=== PATIENT | female | born 1965 | race Caucasian/White ===

== ENCOUNTER 2016-07-01 17:32 | Emergency (ER) | payer MEDICAID ==
[~2016-07-01] VITALS: Wt 78.5 kg
[~2016-07-01 17:32] MED LIST: DICY20TA59 PO; ERYT1OIN6 RIGHT EYE; FURO20TA PO; RANI150T9 PO
[2016-07-01 19:41] LABS: URINE BLOOD (Dip) POC Negative (NEGATIVE)
[2016-07-01] MEDS ORDERED: ULT50 PO (20:06)
[2016-07-01] MEDS ORDERED: IBUP-1542 PO (20:06)
--- NOTE | 2016-07-01 20:11 | RADRPT ---
PROCEDURE: XR Lumbar Spine. CLINICAL INDICATION: Lumbar spine pain. TECHNIQUE: AP, lateral, and cone-down lateral view of the lumbar spine were obtained. COMPARISON: 09/13/2014 FINDINGS: The alignment of the lumbar spine is within normal limits. There are anterior osteophytes from L2-S 1 with mild narrowing of the intervertebral disc spaces at L2-3 and L5-S1. There are mild associate d discogenic endplate changes at L5-S1. The vertebral body heights and marrow density are normal in appearance. There is moderate facet spondylosis at L4-5 and L5-S1 with suggestion of neural foramin al narrowing at L5-S1. The remaining neural foramina appear patent. The paraspinal soft tissues un remarkable. There is no evidence of fracture. The bowel gas pattern is normal. IMPRESSION: 1. Mild to moderate degenerative disc disease at L2-3 and L5-S1. 2. Moderate facet spondylosis at L4-5 and L5-S1 with suggestion of neural foraminal narrowing at L5 -S1. RPTAT: HGAS .Ben Barragan MD, Date Time Electronically viewed and signed by .Ben Barragan MD, on 07/01/2016 20:10 .S/
--- NOTE | 2016-07-01 20:12 | ERD ---
ER Documentation Chief Complaint Date/Time DATE: 07/01/16 TIME: 20:08 Chief Complaint BACK PAIN X4 DAYS, NO INJURY HPI This 51-year-old female complains of left sided low back pain for last 4 days. She denies any history of trauma, dysuria, fevers, vomiting. ROS All systems reviewed and are negative except as per history of present illness. Medications Home Meds Active Scripts Tramadol HCl (Tramadol HCl) 50 Mg Tablet, 50 MG PO Q4 Y for PAIN, #20 TAB Prov:ELAINE MALIK MD 07/01/16 Ibuprofen* (Motrin*) 600 Mg Tab, 600 MG PO Q6, #20 TAB Prov:ELAINE MALIK MD 07/01/16 Furosemide* (Lasix*) 20 Mg Tablet, 20 MG PO DAILY, #5 TAB Prov:PRITI CRAFTSTOLOS A. DO 12/04/15 Dicyclomine Hcl* (Bentyl*) 20 Mg Tablet, 20 MG PO QID for abdominal pain, #20 TAB Prov:MJKKOSAPOSTOLOS AFranci DO 12/04/15 Ranitidine Hcl* (Zantac*) 150 Mg Tablet, 150 MG PO BID Y for EPIGASTRIC PAIN, # 30 TAB Prov:LEKKOSAPOSTOLOS A. DO 12/04/15 Erythromycin (Erythromycin Opth) 3.5 Gm Oint..gm., 1 APPLIC RIGHT EYE QID for 7 Days, EA Prov:OSITO CARPENTER PA-C 02/01/15 Allergies Allergies: Coded Allergies: No Known Allergies (Verified Allergy, Mild, 07/01/16) PMhx/Soc Medical and Surgical Hx: pt denies Surgical Hx History of Surgery: No Anesthesia Reaction: No Hx Neurological Disorder: Yes (Lumbar/Cervical Strain) Hx Respiratory Disorders: No Hx Cardiac Disorders: No Hx Psychiatric Problems: No Hx Miscellaneous Medical Probl: Yes (UTIs,Epitaxis,R Eye Injury,Sacral/ COccygeal Contusion) Hx Alcohol Use: No Hx Substance Use: No Hx Tobacco Use: No Smoking Status: Never smoker Physical Exam Vitals Vital Signs Date Time Temp Pulse Resp B/P Pulse Ox O2 Delivery O2 Flow Rate FiO2 07/01/16 17:37 97.6 85 17 172/85 98 Physical Exam Const: [] Alert, [id number]. Head: Atraumatic Eyes: Normal Conjunctiva ENT: Normal External Ears, Nose and Mouth. Neck: Full range of motion..~ No meningismus. Resp: Clear to auscultation bilaterally Cardio: Regular rate and rhythm, no murmurs Abd: Soft, non tender, non distended. Normal bowel sounds Skin: No petechiae or rashes Back: No midline or flank tenderness. Tender left L4-5 press muscles. Ext: No cyanosis, or edema Neur: Awake and alert Psych: Normal Mood and Affect Results 24 hrs Laboratory Tests Test 07/01/16 19:41 Bedside Urine Blood Negative Bedside Urine Glucose (UA) Negative Bedside Urine Ketones (LAB) Negative Bedside Urine Leukocyte Esterase (L Negative Bedside Urine Nitrite (LAB) Negative Bedside Urine Protein (LAB) Negative Bedside Urine pH (LAB) 7.0 Procedures/MDM Urine is negative for leukocytes, nitrites, blood, glucose. X-ray LS-Spine 3V Interpreted by me: Bones: [No fracture] Joints: [No dislocation] Foreign body: [None]. Impression-degenerative changes lumbar spine with no fracture or dislocation of the lumbar spine. Patient presents with left-sided low back pain, likely muscular skeletal. Signs and symptoms are not suggestive of cauda equina syndrome, epidural abscess , fracture, dislocation, neurologic deficit. She will treated with tramadol and ibuprofen and observation at home. The patient was stable with no new complaints during the ER course. Clinically, there is no current evidence to suggest meningitis, sepsis, acute abdomen, pneumonia, acute coronary syndrome, pulmonary embolism, or any other emergent condition appearing to require further evaluation or hospitalization. The patient should certainly return for any new or worsening symptoms per the aftercare instructions. They should otherwise follow-up with her primary care doctor for reevaluation this week. Departure Diagnosis: Primary Impression: Back pain Back pain location: low back pain Chronicity: acute Back pain laterality: left Sciatica presence: without sciatica Qualified Code: M54.5 - Acute left- sided low back pain without sciatica Condition: Stable Patient Instructions: Back Pain (Acute Or Chronic) Additional Instructions: orina y estudios normal. probablamnete musculos/ ligamentos. Cheque otro vez con bucio doctor primario en el proximo dillard or regresa para mas o nueva simptomas. ELAINE MALIK MD Jul 01, 2016 20:12
[2016-07-01 20:30] VITALS: BP 187/77; PULSE 81; RESP 16; TEMP 98.6
== END 2016-07-01 20:30 | disposition home or self-care (01) ==
LOC: FTE 17:32
DX: M54.5 Low back pain (principal)
CPT/HCPCS: 72100; 81003

== ENCOUNTER 2016-08-26 12:07 | Emergency (ER) | payer MEDICAID ==
[~2016-08-26] VITALS: Ht 157.5 cm; Wt 76.0 kg
[~2016-08-26 12:07] MED LIST changes: +FURO-110 PO; -FURO20TA PO; +IBUP-1542 PO; +TRAM50TA2 PO
[2016-08-26 12:21] VITALS: Ht 157.5 cm; Wt 76.0 kg
[2016-08-26] MEDS ORDERED: ONDANSETRON 4 MG INJ IV STA (14:20)
[2016-08-26] MEDS ORDERED: SOD CHLORIDE 0.9% 1,000 ML IV STA (14:20)
[2016-08-26] MEDS ORDERED: ACETAMINOPHEN 325 MG TAB PO ONE (14:30)
[2016-08-26 14:47] LABS: ADD SCAN DIFF NO
[2016-08-26 14:52] LABS: BASOPHILS % 0.2 % (0.0-2.0); HEMATOCRIT 41.2 % (37.0-47.0); HEMOGLOBIN 13.7 g/dl (12.0-16.0); LYMPHOCYTES # 0.8 10^3/ul (0.8-2.9); LYMPHOCYTES % 12.8 % (15.0-51.0); MEAN CORPUSCULAR HEMOGLOBIN 27.8 pg (29.0-33.0); MEAN CORPUSCULAR HGB CONC 33.3 g/dl (32.0-37.0); MEAN CORPUSCULAR VOLUME 83.7 fl (82.0-101.0); MONOCYTE # 0.5 10^3/ul (0.3-0.9); MONOCYTES % 7.7 % (0.0-11.0); NEUTROPHIL # 4.7 10^3/ul (1.6-7.5); PLATELET COUNT 216 10^3/UL (140-415); RED BLOOD COUNT 4.92 10^6/ul (4.20-5.40); RED CELL DISTRIBUTION WIDTH 12.7 % (11.5-14.5)
[2016-08-26 14:57] LABS: ADD UMIC YES; URINE BILIRUBIN (Dip) NEGATIVE (NEGATIVE); URINE BLOOD (Dip) NEGATIVE (NEGATIVE); URINE COLOR LT. YELLOW (YELLOW); URINE GLUCOSE (Dip) NEGATIVE (NEGATIVE); URINE KETONES (Dip) NEGATIVE (NEGATIVE); URINE LEUKOCYTE ESTERASE (Dip) NEGATIVE (NEGATIVE); URINE NITRITE (Dip) NEGATIVE (NEGATIVE); URINE TOTAL PROTEIN (Dip) TRACE (NEGATIVE); URINE UROBILINOGEN (Dip) 0.2 E.U./dL (0.1-1.0)
[2016-08-26 15:00] LABS: ALBUMIN 4.6 g/dl (3.3-4.9)
[2016-08-26 15:01] LABS: POTASSIUM 3.9 mmol/L (3.5-5.1)
[2016-08-26 15:03] LABS: ALBUMIN/GLOBULIN RATIO 1.17; BILIRUBIN,INDIRECT 0.2 mg/dl (0-1.1); BILIRUBIN,TOTAL 0.2 mg/dl (0.2-1.3); CREATININE 0.64 mg/dl (0.44-1.00); TOTAL PROTEIN 8.5 g/dl (6.1-8.1)
[2016-08-26 15:14] LABS: BACTERIA,URINE FEW; SQUAMOUS EPITHELIAL CELL,UR MODERATE; URINE RBCS NONE SEEN /HPF (0)
[2016-08-26] MEDS ORDERED: ACET500C5 PO (15:19)
[2016-08-26] MEDS ORDERED: ONDA8TAB14 PO (15:20)
--- NOTE | 2016-08-26 15:21 | ERD ---
ER Documentation Chief Complaint Date/Time DATE: 08/26/16 TIME: 15:20 Chief Complaint fever with vomit & diarrhea x 2 days HPI This 51-year-old female presents with fever and vomiting diarrhea for the last 3 days. The vomit is nonbilious nonbloody and there is no blood or mucus in the diarrhea. She denies cough, abdominal pain, headache, urinary complaints. She denies any foreign travel or sick contacts ROS All systems reviewed and are negative except as per history of present illness. Medications Home Meds Active Scripts Ondansetron (Ondansetron Odt) 8 Mg Tab.rapdis, 8 MG PO Q6H Y for NAUSEA AND/OR VOMITING, #10 TAB Prov:ELAINE MALIK MD 08/26/16 Acetaminophen* (Tylophen*) 500 Mg Capsule, 1 CAP PO Q6H Y for PAIN AND OR ELEVATED TEMP, #20 CAP Prov:ELAINE MALIK MD 08/26/16 Tramadol HCl (Tramadol HCl) 50 Mg Tablet, 50 MG PO Q4 Y for PAIN, #20 TAB Prov:ELAINE MALIK MD 07/01/16 Ibuprofen* (Motrin*) 600 Mg Tab, 600 MG PO Q6, #20 TAB Prov:ELAINE MALIK MD 07/01/16 Furosemide* (Lasix*) 20 Mg Tablet, 20 MG PO DAILY, #5 TAB Prov:MAXINE CRAFT DO 12/04/15 Dicyclomine Hcl* (Bentyl*) 20 Mg Tablet, 20 MG PO QID for abdominal pain, #20 TAB Prov:PRITI CRAFTSTLUCY Hart DO 12/04/15 Ranitidine Hcl* (Zantac*) 150 Mg Tablet, 150 MG PO BID Y for EPIGASTRIC PAIN, # 30 TAB Prov:PRITI CRAFTSTLUCY Hart DO 12/04/15 Erythromycin (Erythromycin Opth) 3.5 Gm Oint..gm., 1 APPLIC RIGHT EYE QID for 7 Days, EA Prov:OSITO CARPENTER PA-C 02/01/15 Allergies Allergies: Coded Allergies: No Known Allergies (Verified Allergy, Mild, 07/01/16) PMhx/Soc History of Surgery: No Anesthesia Reaction: No Hx Neurological Disorder: Yes (Lumbar/Cervical Strain) Hx Respiratory Disorders: No Hx Cardiac Disorders: No Hx Psychiatric Problems: No Hx Miscellaneous Medical Probl: Yes (UTIs,Epitaxis,R Eye Injury,Sacral/ COccygeal Contusion) Hx Alcohol Use: No Hx Substance Use: No Hx Tobacco Use: No Smoking Status: Never smoker Physical Exam Vitals Vital Signs Date Time Temp Pulse Resp B/P Pulse Ox O2 Delivery O2 Flow Rate FiO2 08/26/16 12:21 101.1 110 97 126/82 96 Physical Exam Const: [] Alert, [id number]-dtmheqony per Head: Atraumatic Eyes: Normal Conjunctiva ENT: Normal External Ears, Nose and Mouth. Neck: Full range of motion..~ No meningismus. Resp: Clear to auscultation bilaterally Cardio: Regular rate and rhythm, no murmurs Abd: Soft, non tender, non distended. Normal bowel sounds Skin: No petechiae or rashes Back: No midline or flank tenderness Ext: No cyanosis, or edema Neur: Awake and alert Psych: Normal Mood and Affect Result Diagram: 08/26/16 1438 08/26/16 1438 Results 24 hrs Laboratory Tests Test 08/26/16 14:38 Alanine Aminotransferase (ALT/SGPT) 37IU/L Albumin 4.6g/dl Albumin/Globulin Ratio 1.17 Alkaline Phosphatase 89IU/L Anion Gap 20 Aspartate Amino Transf (AST/SGOT) 36IU/L Basophils # 0.010^3/ul Basophils % 0.2% Blood Urea Nitrogen 15mg/dl Calcium Level 9.0mg/dl Carbon Dioxide Level 25mmol/L Chloride Level 101mmol/L Creatinine 0.64mg/dl Direct Bilirubin 0.00mg/dl Eosinophils # 0.010^3/ul Eosinophils % 0.0% Globulin 3.90g/dl Glucose Level 108mg/dl Hematocrit 41.2% Hemoglobin 13.7g/dl Indirect Bilirubin 0.2mg/dl Lipase 40U/L Lymphocytes # 0.810^3/ul Lymphocytes % 12.8% Mean Corpuscular Hemoglobin 27.8pg Mean Corpuscular Hemoglobin Concent 33.3g/dl Mean Corpuscular Volume 83.7fl Mean Platelet Volume 10.0fl Monocytes # 0.510^3/ul Monocytes % 7.7% Neutrophils # 4.710^3/ul Neutrophils % 79.0% Nucleated Red Blood Cells # 0.010^3/ul Nucleated Red Blood Cells % 0.0/100WBC Platelet Count 78642^3/UL Potassium Level 3.9mmol/L Red Blood Count 4.9210^6/ul Red Cell Distribution Width 12.7% Sodium Level 142mmol/L Total Bilirubin 0.2mg/dl Total Protein 8.5g/dl Urine Bacteria FEW Urine Bilirubin NEGATIVE Urine Clarity CLEAR Urine Color LT. YELLOW Urine Glucose NEGATIVE% Urine Hemoglobin NEGATIVE Urine Ketones NEGATIVE Urine Leukocyte Esterase NEGATIVE Urine Microscopic RBC NONE SEEN/HPF Urine Microscopic WBC 0-2/HPF Urine Nitrite NEGATIVE Urine Specific Acton 1.020 Urine Squamous Epithelial Cells MODERATE Urine Total Protein TRACE Urine Urobilinogen 0.2 E.U./dL Urine pH 6.0 White Blood Count 6.010^3/ul Current Medications Medications (Trade) Dose Ordered Sig/Brandy Route PRN Reason Start Time Stop Time Status Last Admin Dose Admin Sodium Chloride (NS) 1,000 ml @ 1,000 mls/hr Q1H STAT IV 08/26/16 14:20 08/26/16 15:19 DC 08/26/16 14:30 Ondansetron HCl (Zofran Inj) 4 mg ONCE STAT IV 08/26/16 14:20 08/26/16 14:22 DC 08/26/16 14:30 Acetaminophen (Tylenol Tab) 650 mg ONCE ONCE PO 08/26/16 14:30 08/26/16 14:31 DC 08/26/16 14:30 Procedures/MDM Given the duration of symptoms of uncertain etiology and IV was obtained. Patient was given 1 L normal saline IV, Tylenol for fever, Zofran form of grams IV. CBC and CMP and lipase are normal. Patient had a benign abdomen on serial exam with clear lungs. Patient presents with febrile illness, vomiting diarrhea suggestive of a viral gastroenteritis. She will treated with Zofran, Tylenol, instructions for clear fluids at home and further observation. The patient was stable with no new complaints during the ER course. Clinically, there is no current evidence to suggest meningitis, sepsis, acute abdomen, pneumonia, acute coronary syndrome, pulmonary embolism, or any other emergent condition appearing to require further evaluation or hospitalization. The patient should certainly return for any new or worsening symptoms per the aftercare instructions. They should otherwise follow-up with her primary care doctor for reevaluation this week. Departure Diagnosis: Primary Impression: Vomiting and diarrhea Condition: Stable Patient Instructions: Self-Care for Vomiting and Diarrhea, Fever Control (Adult ) Referrals: [facility] Usted se beckford hecho un examen mdico de control que le indica que no est en timur condicin que requiera tratamiento urgente en el Departamento de Emergencia. Un estudio ms profundo y el tratamiento de bucio condicin pueden esperar sin ningn riesgo hasta que usted sea atendida/o en el consultorio de bucio mdico o timur cl gerri. Es responsabilidad suya arreglar timur jenny para el seguimiento del sukhdeep. MANEJO DE CONDICIONES NO URGENTES EN EL FUTURO 1) Si usted tiene un mdico de atencin primaria: Usted debera llamar a bucio mdico de atencin primaria antes de venir al departamento de emergencia. Despus de las horas de consultorio, bucio doctor o bucio asociado/a est disponible por telfono. El mdico o enfermero de arlen en el servicio telefnico puede asesorarle por coyd medio para atender el problema, o sukhdeep contrario se puede programar timur jenny. 2) Si usted no tiene un mdico de atencin primaria: Llame al mdico o clnica de referencia que aparece abajo fozia las horas de consultorio para hacer timur jenny para que le vean. CLINICAS: [facility] [phone] [facility] [facility] [phone] [address] [facility] [phone] [address] [facility] [facility] [phone] [address] [facility] [facility]. [facility] [phone] [address] [facility]. [phone] [address] Additional Instructions: DIEGO Y ORINA NORMAL.probablamente un virus que dura 2-4 dillard. cheque otro coral el proximo cali para mas simptomas- vomito, dolor, diego, problemas con respirando, o con bucio doctor primario. ELAINE MALIK MD Aug 26, 2016 15:21
[2016-08-26 15:35] VITALS: BP 118/56; PULSE 95; RESP 18; TEMP 98.8
== END 2016-08-26 15:40 | disposition home or self-care (01) ==
LOC: FTE 12:07
DX: R11.10 Vomiting, unspecified (principal); R19.7 Diarrhea, unspecified
CPT/HCPCS: 36415; 80053; 81001; 83690; 85025; 96361; 96374; J2405; J7030; Z7502; Z7610; 81003

== ENCOUNTER 2017-04-03 12:01 | Emergency (ER) | payer MEDICAID ==
[~2017-04-03] VITALS: Ht 162.6 cm; Wt 77.0 kg
[~2017-04-03 12:01] MED LIST changes: +ACET500C5 PO; +ONDA8TAB14 PO
[2017-04-03 12:09] VITALS: Ht 162.6 cm; Wt 77.0 kg
--- NOTE | 2017-04-03 12:47 | ERD ---
ER Documentation Chief Complaint Date/Time DATE: 04/03/17 TIME: 12:45 Chief Complaint lt sided face numbness no droop/no weakness, arm/leg tingling [id number] HPI 52-year-old female who presents emergency department for left-sided numbness and left arm/leg weakness that started 8 AM. LMP: Stated that her last mental period was when she was 47 years old. G 12 B12 A0. No known drug allergies. No past medical history. Stated her mother of brain tumor. No surgeries. Does not take any prescription medication at home. Social: Not working at this time. Family: Denies family history of stroke or heart attack. ROS All systems reviewed and are negative except as per history of present illness. Medications Home Meds Active Scripts Hydroxyzine Hcl* (Hydroxyzine Hcl*) 10 Mg Tablet, 10 MG PO Q6H Y for ANXIETY, # 20 TAB Prov:DEVORAH PALMER 04/03/17 Ondansetron (Ondansetron Odt) 8 Mg Tab.rapdis, 8 MG PO Q6H Y for NAUSEA AND/OR VOMITING, #10 TAB Prov:ELAINE MALIK MD 08/26/16 Acetaminophen* (Tylophen*) 500 Mg Capsule, 1 CAP PO Q6H Y for PAIN AND OR ELEVATED TEMP, #20 CAP Prov:ELAINE MALIK MD 08/26/16 Tramadol HCl (Tramadol HCl) 50 Mg Tablet, 50 MG PO Q4 Y for PAIN, #20 TAB Prov:ELAINE MALIK MD 07/01/16 Ibuprofen* (Motrin*) 600 Mg Tab, 600 MG PO Q6, #20 TAB Prov:ELAINE MALIK MD 07/01/16 Furosemide* (Lasix*) 20 Mg Tablet, 20 MG PO DAILY, #5 TAB Prov:PRITI CRAFTSTOLOS AFranci DO 12/04/15 Dicyclomine Hcl* (Bentyl*) 20 Mg Tablet, 20 MG PO QID for abdominal pain, #20 TAB Prov:PRITI CRAFTSTVINEETS AFranci DO 12/04/15 Ranitidine Hcl* (Zantac*) 150 Mg Tablet, 150 MG PO BID Y for EPIGASTRIC PAIN, # 30 TAB Prov:PRITI CRAFTSTLUCY A. DO 12/04/15 Erythromycin (Erythromycin Opth) 3.5 Gm Oint..gm., 1 APPLIC RIGHT EYE QID for 7 Days, EA Prov:OSITO CARPENTER PA-C 02/01/15 Allergies Allergies: Coded Allergies: No Known Allergies (Verified Allergy, Mild, 07/01/16) PMhx/Soc History of Surgery: No Anesthesia Reaction: No Hx Neurological Disorder: Yes (Lumbar/Cervical Strain) Hx Respiratory Disorders: No Hx Cardiac Disorders: No Hx Psychiatric Problems: No Hx Miscellaneous Medical Probl: Yes (UTIs,Epitaxis,R Eye Injury,Sacral/ COccygeal Contusion) Hx Alcohol Use: No Hx Substance Use: No Hx Tobacco Use: No Physical Exam Vitals Vital Signs Date Time Temp Pulse Resp B/P Pulse Ox O2 Delivery O2 Flow Rate FiO2 04/03/17 12:09 97.8 90 12 146/89 96 Physical Exam Const: [] Head: Atraumatic Eyes: Normal Conjunctiva ENT: Normal External Ears, Nose and Mouth. Neck: Full range of motion..~ No meningismus. Resp: Clear to auscultation bilaterally Cardio: Regular rate and rhythm, no murmurs Abd: Soft, non tender, non distended. Normal bowel sounds Skin: No petechiae or rashes Back: No midline or flank tenderness Ext: No cyanosis, or edema. Neur: Awake and alert x4. No facial droop. No unilateral weakness. Cranial nerves II through XII are intact. Romberg test is negative. Psych: Normal Mood and Affect Procedures/MDM 52-year-old female who presents emergency department for left-sided numbness and left arm/leg weakness that started 8 AM. LMP: Stated that her last mental period was when she was 47 years old. G 12 B12 A0. No known drug allergies. No past medical history. Stated her mother of brain tumor. No surgeries. Does not take any prescription medication at home. Social: Not working at this time. Family: Denies family history of stroke or heart attack. 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 No facial droop. No unilateral weakness. Cranial nerves II through XII are intact. Romberg test is negative. Disease process was explained to the patient. She verbalized understanding and agreed with the diagnostic exam, treatment, plan of care. EKG: Normal sinus rhythm with a ventricular rate of 69 bpm. No evidence of acute myocardial infarction. No evidence of ischemia. Treatment: P.o. challenge. Re-evaluation: Awake and alert x4. No facial droop. No unilateral weakness. Cranial nerves II through XII are intact. Romberg test is negative. Case was discussed with supervising emergency room physician, Dr. Andre Leonard who agreed with my medical decision making. Differential diagnosis: Stroke versus acute myocardial infarction versus anxiety Final diagnosis: Anxiety Prescription: Hydroxyzine. Follow-up with primary care physician the next 24-48 hours. Come back here in the the emergency department for any symptoms or any worsening of symptoms. All questions and concerns were answered. Patient verbalized understanding and agreed with the plan of care. Hemodynamically stable on discharge. Departure Diagnosis: Primary Impression: Anxiety Condition: Stable Additional Instructions: Follow-up with primary care physician the next 24-48 hours. Come back here in the the emergency department for any symptoms or any worsening of symptoms. All questions and concerns were answered. Patient verbalized understanding and agreed with the plan of care. DEVORAH PALMER Apr 03, 2017 12:47
[2017-04-03] MEDS ORDERED: HYDR-3010 PO (13:11)
== END 2017-04-03 13:20 | disposition home or self-care (01) ==
LOC: FTE 12:01
DX: F41.9 Anxiety disorder, unspecified (principal); M79.601 Pain in right arm
CPT/HCPCS: 93005; Z7502

== ENCOUNTER 2017-04-15 14:10 | Emergency (ER) | payer MEDICAID ==
[~2017-04-15] VITALS: Wt 78.0 kg
[~2017-04-15 14:10] MED LIST changes: +HYDR-3010 PO
[2017-04-15] MEDS ORDERED: IBUPROFEN 800 MG TAB PO ONE (14:30)
[2017-04-15] MEDS ORDERED: IBUP-1542 PO (15:17)
--- NOTE | 2017-04-15 15:20 | ERD ---
ER Documentation Chief Complaint Date/Time DATE: 04/15/17 TIME: 15:20 Chief Complaint on and off numbness on left arm, no chest pain, no sob HPI Patient is a 52-year-old female with no medical problems who presents with numbness to her left arm. She has pain in her left neck that radiates down her left arm. She has had the symptoms for the past 3 weeks. She went to a local clinic and was given gabapentin and aspirin. She was sent to the ER for further evaluation. She denies fevers. She does have neck pain. She has not had ibuprofen as of yet. Upon review of old medical records the patient has multiple visits for various complaints since 2007. ROS All systems reviewed and are negative except as per history of present illness. Medications Home Meds Active Scripts Ibuprofen* (Motrin*) 600 Mg Tab, 600 MG PO Q6H Y for PAIN AND OR ELEVATED TEMP, #30 TAB Prov:LANEY TREVINO MD 04/15/17 Hydroxyzine Hcl* (Hydroxyzine Hcl*) 10 Mg Tablet, 10 MG PO Q6H Y for ANXIETY, # 20 TAB Prov:DEVORAH PALMER 04/03/17 Ondansetron (Ondansetron Odt) 8 Mg Tab.rapdis, 8 MG PO Q6H Y for NAUSEA AND/OR VOMITING, #10 TAB Prov:ELAINE MALIK MD 08/26/16 Acetaminophen* (Tylophen*) 500 Mg Capsule, 1 CAP PO Q6H Y for PAIN AND OR ELEVATED TEMP, #20 CAP Prov:ELAINE MALIK MD 08/26/16 Tramadol HCl (Tramadol HCl) 50 Mg Tablet, 50 MG PO Q4 Y for PAIN, #20 TAB Prov:ELAINE MALIK MD 07/01/16 Ibuprofen* (Motrin*) 600 Mg Tab, 600 MG PO Q6, #20 TAB Prov:ELAINE MALIK MD 07/01/16 Furosemide* (Lasix*) 20 Mg Tablet, 20 MG PO DAILY, #5 TAB Prov:PRITI CRAFTSTVINEETS AFranci DO 12/04/15 Dicyclomine Hcl* (Bentyl*) 20 Mg Tablet, 20 MG PO QID for abdominal pain, #20 TAB Prov:CHOCOOSPRIITSTOLOS AFranci DO 12/04/15 Ranitidine Hcl* (Zantac*) 150 Mg Tablet, 150 MG PO BID Y for EPIGASTRIC PAIN, # 30 TAB Prov:MAXINE CRAFT DO 12/04/15 Erythromycin (Erythromycin Opth) 3.5 Gm Oint..gm., 1 APPLIC RIGHT EYE QID for 7 Days, EA Prov:OSITO CARPENTER PA-C 02/01/15 Allergies Allergies: Coded Allergies: No Known Allergies (Verified Allergy, Mild, 07/01/16) PMhx/Soc History of Surgery: No Anesthesia Reaction: No Hx Neurological Disorder: Yes (Lumbar/Cervical Strain) Hx Respiratory Disorders: No Hx Cardiac Disorders: No Hx Psychiatric Problems: No Hx Miscellaneous Medical Probl: Yes (UTIs,Epitaxis,R Eye Injury,Sacral/ COccygeal Contusion) Hx Alcohol Use: No Hx Substance Use: No Hx Tobacco Use: No Smoking Status: Never smoker FmHx Family History: No diabetes Physical Exam Vitals Vital Signs Date Time Temp Pulse Resp B/P Pulse Ox O2 Delivery O2 Flow Rate FiO2 04/15/17 14:12 98.3 81 18 159/78 97 Physical Exam Const: No acute distress Head: Atraumatic Eyes: Normal Conjunctiva ENT: Normal External Ears, Nose and Mouth. Neck: Full range of motion..~ No meningismus. Resp: Clear to auscultation bilaterally Cardio: Regular rate and rhythm, no murmurs Abd: Soft, non tender, non distended. Normal bowel sounds Skin: No petechiae or rashes Back: No midline or flank tenderness Ext: No cyanosis, or edema Neur: Awake and alert, all nerve roots of the left upper extremity are intact , able to give a thumbs up, okay sign, spread fingers, and good graphic engineer strength on the left with good sensation Psych: Normal Mood and Affect Results 24 hrs Laboratory Tests Test 04/15/17 14:33 Bedside Glucose 133mg/dL Current Medications Medications (Trade) Dose Ordered Sig/Brandy Route PRN Reason Start Time Stop Time Status Last Admin Dose Admin Ibuprofen (Motrin) 800 mg ONCE ONCE PO 04/15/17 14:30 04/15/17 14:31 DC Procedures/MDM EKG read by me: Rate/Rhythm: Regular rate and rhythm at a rate of 80 Intervals: Normal Impression: No evidence of ischemia or arrhythmia Accu-Chek is normal. Patient is a 52-year-old female with no medical problems who presents with numbness to the left arm. I feel the risk of doing a CT scan of the brain outweigh the benefits at this time as the patient is a normal neurologic exam. Her symptoms are more consistent with a cervical radiculopathy. I doubt stroke or intracranial hemorrhage or mass. I doubt acute coronary syndrome or hypoglycemia. The patient will be discharged home but will need to follow-up closely with her primary doctor within 1 week for reevaluation. She can return sooner for any worsening symptoms. The patient understands the plan and is okay for discharge at this time. She will be given ibuprofen for pain and inflammation reduction. Departure Diagnosis: Primary Impression: Cervical radiculopathy Additional Impression: Numbness Condition: Fair Patient Instructions: Radiculopathy, Cervical Referrals: Your doctor Additional Instructions: Llame al doctor nombrado waldron (Referral Sources) MAANA y tamar timur EN PARA DENTRO DE TIMUR SEMANA. Dgale a la secretaria que nosotros le instruimos hacer esta en.Avise o llame si bucio condicin se empeora antes de la en. LANEY TREVINO MD Apr 15, 2017 15:20
[2017-04-15 15:28] VITALS: BP 128/78; PULSE 78; RESP 20
== END 2017-04-15 15:30 | disposition home or self-care (01) ==
LOC: E/R 14:10
DX: M54.12 Radiculopathy, cervical region (principal); R40.2122 Coma scale, eyes open, to pain, at arrival to emergency department; R40.2252 Coma scale, best verbal response, oriented, at arrival to emergency department; R40.2362 Coma scale, best motor response, obeys commands, at arrival to emergency department
CPT/HCPCS: 82962; Z7502

== ENCOUNTER 2017-05-04 19:47 | Emergency (ER) | payer BC, MEDICAID ==
[~2017-05-04] VITALS: Ht 160 cm; Wt 78.0 kg
[2017-05-04 19:57] VITALS: Ht 160 cm; Wt 78.0 kg
--- NOTE | 2017-05-04 21:11 | ERD ---
ER Documentation Chief Complaint Chief Complaint numbness left side of body/headache x 1 month. no neuro deficit HPI This is a 52-year-old female with no reported past medical history who is presenting with progressive worsening left-sided headache, neck pain with tingling and pain to the left arm and left leg. The patient is ambulatory without issue and does not have any obvious focal deficits while the history is taken place. She states that these symptoms have been going on for several months. She was evaluated in the emergency department approximately 2 weeks ago for this, but she was only given Motrin. She does not have a primary care doctor, and she has not had a chance to schedule an appointment since then. She feels that the pain has been getting worse. The patient denies feeling sick recently. The patient denies fever or chills. The patient has had no headache or vision changes. The patient does not endorse neck or back pain. The patient denies lightheadedness or dizziness. The patient has had no chest pain or shortness of breath or trouble breathing. The patient denies nausea or vomiting. The patient denies abdominal pain or changes to bowel movements or urination. The patient has had no focal deficits. ROS All systems reviewed and are negative except as per history of present illness. Medications Home Meds Active Scripts Cyclobenzaprine Hcl* (Cyclobenzaprine Hcl*) 10 Mg Tablet, 5 MG PO TID Y for neck pain, #15 TAB Prov:BENJAMIN HALL MD 05/05/17 Ibuprofen* (Motrin*) 600 Mg Tab, 600 MG PO Q6H Y for PAIN AND OR ELEVATED TEMP, #30 TAB Prov:LANEY TREVINO MD 04/15/17 Hydroxyzine Hcl* (Hydroxyzine Hcl*) 10 Mg Tablet, 10 MG PO Q6H Y for ANXIETY, # 20 TAB Prov:DEVORAH PALMER 04/03/17 Ondansetron (Ondansetron Odt) 8 Mg Tab.rapdis, 8 MG PO Q6H Y for NAUSEA AND/OR VOMITING, #10 TAB Prov:ELAINE MALIK MD 08/26/16 Acetaminophen* (Tylophen*) 500 Mg Capsule, 1 CAP PO Q6H Y for PAIN AND OR ELEVATED TEMP, #20 CAP Prov:ELAINE MALIK MD 08/26/16 Tramadol HCl (Tramadol HCl) 50 Mg Tablet, 50 MG PO Q4 Y for PAIN, #20 TAB Prov:ELAINE MALIK MD 07/01/16 Ibuprofen* (Motrin*) 600 Mg Tab, 600 MG PO Q6, #20 TAB Prov:ELAINE MALIK MD 07/01/16 Furosemide* (Lasix*) 20 Mg Tablet, 20 MG PO DAILY, #5 TAB Prov:MAXINE CRAFT AFranci DO 12/04/15 Dicyclomine Hcl* (Bentyl*) 20 Mg Tablet, 20 MG PO QID for abdominal pain, #20 TAB Prov:PRITI CRAFTSTOLOS A. DO 12/04/15 Ranitidine Hcl* (Zantac*) 150 Mg Tablet, 150 MG PO BID Y for EPIGASTRIC PAIN, # 30 TAB Prov:VENANCIO,PRITISTOLOS A. DO 12/04/15 Erythromycin (Erythromycin Opth) 3.5 Gm Oint..gm., 1 APPLIC RIGHT EYE QID for 7 Days, EA Prov:OSITO CARPENTER PA-C 02/01/15 Allergies Allergies: Coded Allergies: No Known Allergies (Verified Allergy, Mild, 05/04/17) PMhx/Soc History of Surgery: No Anesthesia Reaction: No Hx Neurological Disorder: Yes (Lumbar/Cervical Strain) Hx Respiratory Disorders: No Hx Cardiac Disorders: No Hx Psychiatric Problems: No Hx Miscellaneous Medical Probl: Yes (UTIs,Epitaxis,R Eye Injury,Sacral/ COccygeal Contusion) Hx Alcohol Use: No Hx Substance Use: No Hx Tobacco Use: No FmHx Family History: No coronary disease, No diabetes Physical Exam Vitals Vital Signs Date Time Temp Pulse Resp B/P Pulse Ox O2 Delivery O2 Flow Rate FiO2 05/05/17 00:18 98.3 66 20 138/76 96 05/04/17 19:57 97.5 92 20 147/80 96 Physical Exam Const: No apparent distress, well-developed, well-nourished Head: Atraumatic Eyes: Normal Conjunctiva. Extraocular movements intact. ENT: Normal External Ears, Nose and Mouth. Neck: Full range of motion. ~ No meningismus. Resp: Clear to auscultation bilaterally Cardio: Regular rate and rhythm, no murmurs Abd: Soft, non tender, non distended. Normal bowel sounds Skin: No petechiae or rashes Back: No midline or flank tenderness Ext: No cyanosis, or edema Neur: Awake and alert, oriented 4. Cranial nerves intact. No facial droop. Normal strength and sensation in all extremities. Coordination with finger to nose normal. Psych: Normal Mood and Affect Result Diagram: 05/04/17211205/04/172112 Results 24 hrs Laboratory Tests Test 05/04/17 21:13 05/04/17 21:49 05/04/17 21:50 White Blood Count 6.010^3/ul Red Blood Count 4.9910^6/ul Hemoglobin 13.9g/dl Hematocrit 41.7% Mean Corpuscular Volume 83.6fl Mean Corpuscular Hemoglobin 27.9pg Mean Corpuscular Hemoglobin Concent 33.3g/dl Red Cell Distribution Width 12.5% Platelet Count 74271^3/UL Mean Platelet Volume 10.0fl Neutrophils % 52.5% Lymphocytes % 38.8% Monocytes % 6.5% Eosinophils % 1.3% Basophils % 0.7% Nucleated Red Blood Cells % 0.0/100WBC Neutrophils # 3.210^3/ul Lymphocytes # 2.310^3/ul Monocytes # 0.410^3/ul Eosinophils # 0.110^3/ul Basophils # 0.010^3/ul Nucleated Red Blood Cells # 0.010^3/ul Prothrombin Time 11.6Sec Prothrombin Time Ratio 0.9 INR International Normalized Ratio 0.85 Activated Partial Thromboplast Time 28.2Sec Sodium Level 143mmol/L Potassium Level 3.7mmol/L Chloride Level 106mmol/L Carbon Dioxide Level 28mmol/L Anion Gap 13 Blood Urea Nitrogen 15mg/dl Creatinine 0.61mg/dl Glucose Level 96mg/dl Hemoglobin A1c 5.4% Calcium Level 9.7mg/dl Troponin I < 0.012ng/ml Bedside Glucose 97mg/dL Urine Color YELLOW Urine Clarity CLEAR Urine pH 6.0 Urine Specific [place] 1.017 Urine Ketones NEGATIVEmg/dL Urine Nitrite NEGATIVEmg/dL Urine Bilirubin NEGATIVEmg/dL Urine Urobilinogen 1+mg/dL Urine Leukocyte Esterase NEGATIVELeu/ul Urine Hemoglobin NEGATIVEmg/dL Urine Glucose NEGATIVEmg/dL Urine Total Protein NEGATIVEmg/dl Urine Opiates Screen Negative Urine Barbiturates Negative Urine Amphetamines Screen Negative Urine Benzodiazepines Screen Negative Urine Cocaine Screen Negative Urine Cannabinoids Negative Procedures/MDM MDM The patient's presentation warrants further investigation. The patient has a completely normal neurologic exam. However, she is reporting subjective paresthesias on the left side of her body with a left-sided headache as well. She is describing increased and more global symptoms as compared to her symptoms from 2 weeks ago. A full workup was not completed 2 weeks ago, as the patient did not endorses many symptoms and she had a completely normal neurologic exam. However, despite having a completely normal neurologic exam today, I do feel that she requires additional workup to more definitively help rule out more emergent diagnoses. LABS The patient's blood work was obtained and reviewed. The patient's CBC shows no leukocytosis or left shift. The patient is afebrile and does not appear systemically ill. I do not suspect a systemic infection. The patient is not anemic today. The patient's platelet count is unremarkable. The patient's CMP shows no signs of metabolic or electrolyte abnormality. The patient has normal renal and hepatic function testing. The patient's troponin is negative. The patient's hemoglobin A1c is unremarkable. The patient's urinalysis does not show signs of infection or hematuria. The patient's UDS is negative. EKG EKG read by me: Rate/Rhythm: Regular rate and rhythm Intervals: Normal [place]: Normal Impression: No evidence of ischemia or arrhythmia IMAGING CT Head FINDINGS: The ventricles and sulci are within normal limits. There is no acute intracranial hemorrhage or extra-axial fluid collection. There is no mass effect. No midline shift is identified. There is no loss of hanson-white differentiation to suggest acute infarction. The orbits are within normal limits. The paranasal sinuses and mastoid air cells are without fluid. No destructive osseous lesion is identified. IMPRESSION: No acute findings. Electronically viewed and signed by .Zachary Harris MD, on 05/04/2017 22:54 CT C-Spine FINDINGS: Vertebral body stature and alignment are maintained. No acute fracture or subluxation is identified. The paravertebral and paraspinous soft tissues are unremarkable. IMPRESSION: No acute fracture or subluxation. Electronically viewed and signed by .Zachary Harris MD, on 05/04/2017 23:59 CXR FINDINGS: Normal cardiomediastinal silhouette. The lungs are clear. No pleural effusion or pneumothorax. IMPRESSION: No acute cardiopulmonary disease. Electronically viewed and signed by Jasmyn Rodriguez Physician on 05/04/2017 21 :20 TREATMENT/DISPOSITION The patient has a completely unremarkable evaluation. The patient's symptoms may be consistent with a neck strain. The patient could also have symptoms consistent with an atypical migraine. The patient was strongly encouraged to follow-up with her primary care physician who may coordinate further care. At this time, I feel that the patient stable for discharge. He will need follow -up with his primary care physician in 2-3 days. He will be given strict precautions with which to return to the emergency department. The patient's blood pressure was elevated at greater than 120/80 while in the emergency department. The patient was otherwise stable with no evidence of hypertensive urgency or emergency. The patient will require reevaluation of his blood pressure in 2-3 days, but this may be completed by a primary care physician as an outpatient. He does not require admission for blood pressure control. Departure Diagnosis: Primary Impression: Paresthesia Additional Impressions: Neck muscle strain Encounter type: subsequent encounter Qualified Code: S16.1XXD - Strain of neck muscle, subsequent encounter Headache Headache type: unspecified Headache chronicity pattern: acute headache Intractability: not intractable Qualified Code: R51 - Acute nonintractable headache, unspecified headache type Condition: BENJAMIN Bermudez MD May 04, 2017 21:11
--- NOTE | 2017-05-04 21:21 | RADRPT ---
PROCEDURE: XR Chest. CLINICAL INDICATION: Chest pain TECHNIQUE: Single portable view of the chest was obtained. COMPARISON: None. FINDINGS: Normal cardiomediastinal silhouette. The lungs are clear. No pleural effusion or pneumothorax. IMPRESSION: No acute cardiopulmonary disease. RPTAT:AAJJ Physician Yamini Date Time Electronically viewed and signed by Jasmyn Rodriguez Physician on 05/04/2017 21:20 /
--- NOTE | 2017-05-04 22:55 | RADRPT ---
PROCEDURE: Noncontrast CT Head. CLINICAL INDICATION: Numbness. TECHNIQUE: Noncontrast CT of the head was obtained. The administered radiation dose was CTDI vol = 45 mGy, DLP = 720 mGy-cm. One or more of the following dose reduction techniques were used: automate d exposure control, adjustment of the mA and/or kV according to patient size and/or use of iterative reconstruction technique. COMPARISON: No pertinent prior examinations were submitted for comparison. FINDINGS: The ventricles and sulci are within normal limits. There is no acute intracranial hemorrhage or ext ra-axial fluid collection. There is no mass effect. No midline shift is identified. There is no loss of hanson-white differentiation to suggest acute infarction. The orbits are within normal limits. The paranasal sinuses and mastoid air cells are without fluid. No destructive osseous lesion is identified. IMPRESSION: No acute findings. RPTAT: HIKT .Zachary Harris MD, MD Date Time Electronically viewed and signed by .Zachary Harris MD, on 05/04/2017 22:54 .T/
--- NOTE | 2017-05-04 23:59 | RADRPT ---
PROCEDURE: CT Cervical Spine without contrast. CLINICAL INDICATION: Headache and numbness TECHNIQUE: Noncontrast CT of the cervical spine was performed with axial images. Coronal and sagitta l images were also performed. The administered radiation dose was CTDI vol = 22 mGy, DLP = 429 mGy- cm. One or more of the following dose reduction techniques were used: automated exposure control, ad justment of the mA and/or kV according to patient size and/or use of iterative reconstruction techni que. COMPARISON: There are no similar studies submitted for comparison. FINDINGS: Vertebral body stature and alignment are maintained. No acute fracture or subluxation is identified. The paravertebral and paraspinous soft tissues are unremarkable. IMPRESSION: No acute fracture or subluxation. RPTAT: HIKT .Zachary Harris MD, Date Time Electronically viewed and signed by .Zachary Harris MD, on 05/04/2017 23:59 .T/
[2017-05-05] MEDS ORDERED: CYCL-319 PO (00:11)
[2017-05-05 00:18] VITALS: BP 138/76; PULSE 66; RESP 20; TEMP 98.3
== END 2017-05-05 00:20 | disposition home or self-care (01) ==
LOC: E/R 19:47
DX: R20.2 Paresthesia of skin (principal); S16.1XXD Strain of muscle, fascia and tendon at neck level, subsequent encounter; R51 Headache; R07.9 Chest pain, unspecified; X58.XXXD Exposure to other specified factors, subsequent encounter
CPT/HCPCS: 36415; 70450; 71010; 72125; 80048; 80307; 81003; 82962; 83036; 84484; 85025; 85610; 85730; 93005

== ENCOUNTER 2017-07-30 11:19 | Emergency (ER) | END 2017-07-30 22:20 | disposition left against medical advice (07) ==

== ENCOUNTER 2017-12-13 12:49 | Emergency (ER) | END 2017-12-13 19:02 | disposition home or self-care (01) ==

== ENCOUNTER 2018-01-12 11:07 | Inpatient (IN) | END 2018-01-20 18:33 | disposition home health service (06) | DRG 872 ==

== ENCOUNTER 2018-01-22 12:57 | Emergency (ER) | END 2018-01-22 16:36 | disposition home or self-care (01) ==